=== PATIENT | male | born 2000 | race Two or more races ===

== ENCOUNTER 2019-09-21 10:36 | Emergency (ER) | payer SELFPAY ==
[~2019-09-21] VITALS: Ht 177.8 cm; Wt 111.1 kg
[2019-09-21 10:41] VITALS: BP 152/94
[2019-09-21] MEDS ORDERED: KETOROLAC TROMETH 60MG/2ML VIAL IM ONE (11:15)
== END 2019-09-21 12:30 | disposition home or self-care (01) ==
LOC: ER 10:36
DX: S39.012A Strain of muscle, fascia and tendon of lower back, initial encounter (principal); X50.0XXA Overexertion from strenuous movement or load, initial encounter; Y93.89 Activity, other specified; Y92.89 Other specified places as the place of occurrence of the external cause; Y99.0 Civilian activity done for income or pay
CPT/HCPCS: 72100; 96372; 99283; J1885; 82962

== ENCOUNTER 2021-05-15 14:53 | Emergency (ER) | payer SELFPAY ==
[~2021-05-15] VITALS: Ht 172.7 cm; Wt 83.9 kg
[~2021-05-15 14:53] MED LIST: ELTR12.5 PO; PANT40TA2 PO; PRED20TA2 PO
[2021-05-15 15:29] VITALS: BP 116/77
[2021-05-15] MEDS ORDERED: IBUPROFEN 800 MG TAB PO ONE (16:30)
[2021-05-15] MEDS ORDERED: TETANUS-DIPTH-ACEL PERTUSSIS 0.5ML SYR Tdap IM ONE (16:30)
[2021-05-15] MEDS ORDERED: cefTRIAXone SOD 1,000 MG VL IM ONE (16:30)
== END 2021-05-15 16:43 | disposition home or self-care (01) ==
LOC: ER 14:57
DX: S62.662A Nondisplaced fracture of distal phalanx of right middle finger, initial encounter for closed fracture (principal); X50.0XXA Overexertion from strenuous movement or load, initial encounter; Y93.89 Activity, other specified; Y92.89 Other specified places as the place of occurrence of the external cause; Y99.8 Other external cause status
CPT/HCPCS: 29125; 73140; 96372; 99283; J0696